=== PATIENT | female | born 1970 | race Two or more races ===

== ENCOUNTER 2016-11-01 18:14 | Emergency (ER) | payer OTHER ==
[2016-11-01 18:46] VITALS: BP 120/64; PULSE 65; TEMP 98.3; BMI 29.7
--- NOTE | 2016-11-01 19:07 | PDOC ---
History of Present Illness <NavidaviMarcelle - Last Filed: 11/01/16 22:01> - General History Source: Patient Exam Limitations: No Limitations - History of Present Illness Travel History: No Initial Comments: 11/01/16 19:11 46-year-old female with no past medical history presents to the emergency department complaining of 4/10 sharp nonradiating intermittent epigastric discomfort 2 weeks. Discomfort is associated with nausea, 2 bouts of vomiting/ nonbilious, non-bloody, diarrhea. Pain is alleviated at rest and exacerbated with eating. Patient denies any fever, chest pain, shortness of breath, flank pains, urinary symptoms: Frequency/urgency/hesitancy, hematuria. Patient states she has not seen her medical doctor the discomfort started 2 weeks ago. LMP: [id number] ago PMD: Dr. Hinton[facility] PT REFUSED UA?UPREG Timing/Duration: reports: intermittent Quality: reports: mild Abdominal Pain Onset Location: reports: epigastric Pain Radiation: reports: no radiation Activities at Onset: reports: eating Aggravating Factors: improves with: Eating Alleviating Factors: improves with: Rest <Chrissy Ordoñez - Last Filed: 11/01/16 22:54> - General Chief Complaint: Pain Stated Complaint: STOMACH PAIN Time Seen by Provider: 11/01/16 18:45 Past History <NavidaviMarcelle - Last Filed: 11/01/16 22:01> - Past Medical History Other medical history: none - Psycho/Social/Smoking Cessation Hx Anxiety: No Suicidal Ideation: No Smoking History: Never smoked Have you smoked in the past 12 months: No Information on smoking cessation initiated: No Hx Alcohol Use: No Drug/Substance Use Hx: No Substance Use Type: None <Chrissy Ordoñez - Last Filed: 11/01/16 22:54> - Past Medical History Allergies/Adverse Reactions: Allergies Allergy/AdvReac Type Severity Reaction Status Date / Time No Known Allergies Allergy Verified 11/01/16 18:16 Home Medications: Ambulatory Orders Famotidine [Pepcid] 20 mg PO BID 30 Days 11/01/16 Review of Systems - Review of Systems Able to Perform ROS?: Yes Comments:: 11/01/16 19:10 CONSTITUTIONAL: Absent: fever, chills, diaphoresis, generalized weakness, malaise, loss of appetite HEENT: Absent: rhinorrhea, nasal congestion, throat pain, throat swelling, difficulty swallowing, mouth swelling, ear pain, eye pain, visual Changes CARDIOVASCULAR: Absent: chest pain, loss of consciousness, palpitations, irregular heart rate, peripheral edema RESPIRATORY: Absent: cough, shortness of breath, dyspnea with exertion, orthopnea, wheezing, stridor, hemoptysis GASTROINTESTINAL: +EPIGASTRIC PAIN x2 WEEKS Absent: abdominal distension, nausea, vomiting, diarrhea, constipation, melena , hematochezia GENITOURINARY: Absent: dysuria, frequency, urgency, hesitancy, hematuria, flank pain, genital pain MUSCULOSKELETAL: Absent: myalgia, arthralgia, joint swelling SKIN: Absent: rash, itching, pallor HEMATOLOGIC/IMMUNOLOGIC: Absent: easy bleeding, easy bruising, lymphadenopathy, frequent infections ENDOCRINE: Absent: unexplained weight gain, unexplained weight loss, heat intolerance, cold intolerance NEUROLOGIC: Absent: headache, focal weakness or paresthesias, dizziness, unsteady gait, seizure, mental status changes, bladder or bowel incontinence PSYCHIATRIC: Absent: anxiety, depression, suicidal or homicidal ideation, hallucinations. Is the patient limited Icelandic proficient: No <Chrissy Ordoñez - Last Filed: 11/01/16 22:54> *Physical Exam - Vital Signs Last Vital Signs Temp Pulse Resp BP Pulse Ox 98.3 F 65 18 120/64 100 11/01/16 18:17 11/01/16 18:17 11/01/16 18:17 11/01/16 18:17 11/01/16 18:17 <Marcelle Banuelos - Last Filed: 11/01/16 22:01> - Vital Signs Last Vital Signs Temp Pulse Resp BP Pulse Ox 98.3 F 65 18 120/64 100 11/01/16 18:17 11/01/16 18:17 11/01/16 18:17 11/01/16 18:17 11/01/16 18:17 - Physical Exam Comments: 11/01/16 19:11 GENERAL: Well developed, well nourished. Awake and alert. No acute distress. HEENT: Normocephalic, atraumatic. PERRLA, EOMI. No conjunctival pallor. Sclera are non- icteric. Moist mucous membranes. Oropharynx is clear. NECK: Supple. Full ROM. No JVD. Carotid pulses 2+ and symmetric, without bruits. No thyromegaly. No lymphadenopathy. CARDIOVASCULAR: Regular rate and rhythm. No murmurs, rubs, or gallops. Distal pulses are 2+ and symmetric. PULMONARY: No evidence of respiratory distress. Lungs clear to auscultation bilaterally. No wheezing, rales or rhonchi. ABDOMINAL: Soft. Non-tender. Non-distended. No rebound or guarding. No organomegaly. Normoactive bowel sounds. MUSCULOSKELETAL Normal range of motion at all joints. No bony deformities or tenderness. No CVA tenderness. EXTREMITIES: No cyanosis. No clubbing. No edema. No calf tenderness. SKIN: Warm and dry. Normal capillary refill. No rashes. No jaundice. NEUROLOGICAL: Alert, awake, appropriate. Cranial nerves 2-12 intact. No deficits to light touch and temperature in face, upper extremities and lower extremities. No motor deficits in the in face, upper extremities and lower extremities. Normoreflexic in the upper and lower extremities. Normal speech. Toes are down- going bilaterally. Gait is normal without ataxia. PSYCHIATRIC: Cooperative. Good eye contact. Appropriate mood and affect. <Chrissy Ordoñez - Last Filed: 11/01/16 22:54> ED Treatment Course - LABORATORY CBC & Chemistry Diagram: 11/01/16 20:11 11/01/16 20:11 - ADDITIONAL ORDERS Additional order review: Laboratory Results 11/01/16 20:11 Sodium 137 Potassium 3.6 Chloride 102 Carbon Dioxide 27 Anion Gap 8 BUN 7 Creatinine 0.7 Creat Clearance w eGFR > 60 Random Glucose 80 Calcium 8.9 Total Bilirubin 0.5 AST 12 L ALT 18 Alkaline Phosphatase 61 Total Protein 7.2 Albumin 3.6 Total Amylase 68 Lipase 137 11/01/16 20:11 RBC 4.22 MCV 87.5 MCHC 32.9 RDW 13.0 MPV 9.7 Neutrophils % 48.9 Lymphocytes % 38.8 Monocytes % 10.4 H Eosinophils % 0.8 Basophils % 1.1 - Medications Given in the ED: ED Medications Discontinued Medications Generic Name Dose Route Start Last Admin Trade Name Freq PRN Reason Stop Dose Admin Al Hydroxide/Mg Hydroxide 30 ml 11/01/16 19:08 11/01/16 19:11 Mylanta Oral Suspension - PO 11/01/16 19:09 30 ml ONCE ONE Administration <Marcelle Banuelos - Last Filed: 11/01/16 22:01> - LABORATORY CBC & Chemistry Diagram: 11/01/16 20:11 11/01/16 20:11 <TiagoChrissy - Last Filed: 11/01/16 22:54> *DC/Admit/Observation/Transfer - Discharge Dispostion Admit: No <VniMarcelle - Last Filed: 11/01/16 22:01> - Discharge Dispostion Admit: No <TiagoChrissy - Last Filed: 11/01/16 22:54> Diagnosis at time of Disposition: Abdominal pain Qualifiers: Abdominal location: epigastric Qualified Code(s): R10.13 - Epigastric pain - Discharge Dispostion Disposition: HOME Condition at time of disposition: Stable - Prescriptions Prescriptions: Famotidine [Pepcid] 20 mg PO BID 30 Days - Referrals Referrals: Queta Awan MD [Primary Care Provider] - Kelli Thompson MD [Staff Physician] - - Patient Instructions Printed Discharge Instructions: DI for Acute Abdomen Additional Instructions: Follow up with your physician or the range rider listed on your discharge Rest Pepcid twice a day Return to back top the ER for severe/persistent or worsening symptoms
[2016-11-01] MEDS ORDERED: MAG HYDROX/AL HYDROX/SIMETH 30 ML UNIT-DOSE CUP PO ONE (19:08)
[2016-11-01] MEDS ORDERED: MAG HYDROX/AL HYDROX/SIMETH 30 ML UNIT-DOSE CUP ONE (19:13)
[2016-11-01 20:22] LABS: BASOPHIL 1.1 % (0-2.0); EOSINOPHIL 0.8 % (0-4.5); MCH 28.8 pg (25.7-33.7); MCHC 32.9 g/dl (32.0-36.0); MEAN CELL VOLUME 87.5 fl (80-96); MEAN PLT VOLUME 9.7 fl (7.5-11.1); NEUTROPHILS 48.9 % (42.8-82.8); PLATELET COUNT 278 K/MM3 (134-434); WHITE BLOOD COUNT 5.5 K/mm3 (4.0-10.0)
[2016-11-01 21:14] LABS: ALBUMIN 3.6 g/dl (3.4-5.0); AMYLASE 68 U/L (25-115); ANION GAP 8 (8-16); BILIRUBIN,TOTAL 0.5 mg/dL (0.2-1.0); CALCIUM 8.9 mg/dL (8.5-10.1); CO2 27 mmol/L (21-32); CREATININE 0.7 mg/dL (0.55-1.02); GLUCOSE,RANDOM 80 mg/dL (74-106); SGOT/AST 12 U/L (15-37); SGPT/ALT 18 U/L (12-78)
[2016-11-01 21:16] LABS: ALK PHOS 61 U/L (45-117); TOT PROT 7.2 g/dl (6.4-8.2)
== END 2016-11-01 22:58 | disposition home or self-care (01) ==
LOC: JER 18:14
DX: R10.13 Epigastric pain (principal)
CPT/HCPCS: 36415; 80053; 82150; 83690; 85025; 99282-25

== ENCOUNTER → 2022-04-15 | Day surgery (SDC) | payer OTHER ==
[2022-04-11 12:15] VITALS: BMI 31.8
[~2022-04-15] MED LIST: PROPOFOL 60 ML ONE
[2022-04-15 13:44] VITALS: PULSE 70; RESP 16; TEMP 97.8
[2022-04-15 13:55] VITALS: BP 98/65
== END | disposition home or self-care (01) ==
LOC: FASU-ENDO 11:47
PROVIDERS: ATTEND Internal Medicine Gastroenterology
PROC: 0DJD8ZZ Inspection of Lower Intestinal Tract, Via Natural or Artificial Opening Endoscopic (ICD-10-PCS; principal; 2022-04-15 12:57)
DX: Z12.11 Encounter for screening for malignant neoplasm of colon (principal); Z86.010 Personal history of colon polyps
CPT/HCPCS: 84703